=== PATIENT | female | born 1985 | race Caucasian/White ===

== ENCOUNTER 2017-07-05 07:42 | Inpatient (IN) | payer OTHER ==
[2017-07-05] MEDS ORDERED: Sodium Chloride 0.9% 10 ML Syringe FLUSH PRN (08:18)
[2017-07-05] MEDS ORDERED: Oxytocin/Lactated Ringers 10 UNIT/1,000 ML BAG IV SCH (08:30)
[2017-07-05] MEDS ORDERED: Lactated Ringers 1,000 ML IV SCH (08:30)
--- NOTE | 2017-07-05 08:35 | PCM.LDHP ---
L&D History of Present Illness - General Date of Service: 07/05/17 Admit Problem/Dx: Patient Status Order with Admit Dx/Problem 07/05/17 08:19 Patient Status [ADT] Routine Admission Diagnosis/Problem Admission Diagnosis/Problem 07/05/17 08:31 31 you at 40 1/7 presents with active labor. No NERI. No VB. Good FM. routine care. AB pos GBS neg Source of Information: Patient History Limitations: Reports: No Limitations - History of Present Illness Location, : Reports: Abdomen Quality: Reports: Pressure Severity: Moderate Improves with: Reports: None Worsens with: Reports: None Associated Symptoms: Denies: vaginal bleeding, vaginal fluid - Related Data Allergies/Adverse Reactions: Allergies Allergy/AdvReac Type Severity Reaction Status Date / Time No Known Allergies Allergy Verified 07/05/17 08:18 Past Medical History : 3 Para: 2 LMP (Approximate): - Past Surgical History HEENT Surgical History: Reports: Tonsillectomy Social & Family History - Family History Family Medical History: Noncontributory - Tobacco Use Smoking Status *Q: Never Smoker Tobacco Use Within Last Twelve Months: No - Living Situation & Occupation Living situation: Reports: H&P Review of Systems - Review of Systems: Review Of Systems: See Below General: Reports: No Symptoms HEENT: Reports: No Symptoms Pulmonary: Reports: No Symptoms Cardiovascular: Reports: No Symptoms Gastrointestinal: Reports: No Symptoms Genitourinary: Reports: No Symptoms Musculoskeletal: Reports: No Symptoms Skin: Reports: No Symptoms Psychiatric: Reports: No Symptoms Neurological: Reports: No Symptoms Hematologic/Lymphatic: Reports: No Symptoms Immunologic: Reports: No Symptoms L&D Exam - Exam Exam: See Below - Vital Signs Vital Signs: Last Vital Signs Temp 36.9 C 07/05/17 08:19 Pulse 85 07/05/17 08:19 Resp 16 07/05/17 08:19 BP 129/80 07/05/17 08:19 Pulse Ox Weight: 131.905 kg - OB Specific Contraction Intensity: Moderate Movement: Active Heart Tones: Present Heart Tones per Min: 135 Heart Rate (FHR) Variability: Moderate (6-25 bmp) Presentation: Vertex Estimated Weight: 3500 - Jaimes Score Jaimes Score Cervix Position: Midposition (cervical exam per nursing assessment) Jaimes Score Consistency: Medium Jaimes Score Effacement: 51-70% Jaimes Score Dilation: > 5 cm Jaimes Score 's Station: -2 Jaimes Score Total: 8 - Exam General: Alert, Oriented HEENT: Conjunctiva Clear GI/Abdominal Exam: Normal Bowel Sounds Extremities: No Pedal Edema Skin: Warm, Dry, Intact Psychiatric: Alert, Normal Affect, Normal Mood - Problem List (1) SNOMED Code(s): 59941684 ICD Code: Z34.90 - ENCNTR FOR SUPRVSN OF NORMAL , UNSP, UNSP TRIMESTER Status: Acute Current Visit: Yes Problem List Initiated/Reviewed/Updated: Yes Orders Last 24hrs: Active Orders 24 hr Category Date Time Status Patient Status [ADT] Routine ADT 07/05/17 08:19 Active Activity as Tolerated [RC] PFP Care 07/05/17 08:19 Active Communication Order [RC] ASDIRECTED Care 07/05/17 08:19 Active Heart Tones [RC] ASDIRECTED Care 07/05/17 08:19 Active Notify Provider [RC] PFP Care 07/05/17 08:19 Active Notify Provider [RC] PRN Care 07/05/17 08:19 Active Peripheral IV Care [RC] . DIRECTED Care 07/05/17 08:19 Active Vital Signs [RC] PER UNIT ROUTINE Care 07/05/17 08:19 Active CBC WITH AUTO DIFF [HEME] Stat Lab 07/05/17 08:18 Ordered TYPE AND SCREEN [BBK] Stat Lab 07/05/17 08:18 Ordered Lactated Ringers [Ringers, Lactated] 1,000 ml Med 07/05/17 08:30 Ordered IV ASDIRECTED Oxytocin/Lactated Ringers [Pitocin in LR 10 Units/1,000 Med 07/05/17 08:30 Ordered ML] 10 unit in 1,000 ml IV .CONTINUOUS Sodium Chloride 0.9% [Saline Flush] Med 07/05/17 08:18 Ordered 10 ml FLUSH ASDIRECTED PRN Electronic Heart Tones Ext w TOCO [WOMSER] Oth 07/05/17 08:19 Ordered Routine Electronic Heart Tones Internal [WOMSER] Per Unit Oth 07/05/17 08:19 Ordered Routine Peripheral IV Insertion Adult [OM.PC] Routine Oth 07/05/17 08:19 Ordered Resuscitation Status Routine Resus Stat 07/05/17 08:18 Ordered Medication Orders Lactated Ringer's (Ringers, Lactated) 1,000 mls @ 100 mls/hr IV ASDIRECTED ROSY Oxytocin/Lactated Ringer's (Pitocin In Lr 10 Units/1,000 Ml) 10 unit in 1,000 mls @ 500 mls/hr IV .CONTINUOUS ROSY PRN Reason: Protocol Sodium Chloride (Saline Flush) 10 ml FLUSH ASDIRECTED PRN PRN Reason: Keep Vein Open Assessment/Plan Comment:: 31 yo at 40 1/7 presents in active labor desires epidural. GBS negative expectant management.
[2017-07-05] MEDS ORDERED: Lidocaine 1% 50 ML MDV ONE (09:19)
[2017-07-05] MEDS ORDERED: Lidocaine 1% 10 ML MDV INJECT ONE (09:29)
[2017-07-05] MEDS ORDERED: Witch Hazel Medicated Pads 100/Jar TOP PRN (09:42)
[2017-07-05] MEDS ORDERED: Lanolin 100% Cream 7 GM Tube TOP PRN (09:42)
[2017-07-05] MEDS ORDERED: Benzocaine/Menthol 20%-0.5% Spray 56 GM Canister TOP PRN (09:42)
[2017-07-05] MEDS ORDERED: Acetaminophen 325 MG Tab PO PRN (09:42)
[2017-07-05] MEDS: Ibuprofen 600 MG Tab PO PRN ×2 (11:23→23:46)
[2017-07-05] MEDS: Docusate Sodium 100 MG Cap PO PRN (23:46)
[2017-07-06] MEDS: Docusate Sodium 100 MG Cap PO PRN (06:34)
[2017-07-06] MEDS: Ibuprofen 600 MG Tab PO PRN (06:34)
--- NOTE | 2017-07-06 06:37 | PCM.DCSUM1 ---
Discharge Summary - Hospital Course Free Text/Narrative:: 31 yo at PPD #1 s/p with 1st degree laceration. Routine maternal stay. transferred to [place] and will be transferring to [place] today for cardiac defect. Pain controlled. Tolerating diet. Exam Unremarkable D/C today to travel to be with infant. FOB is with infant and Michael has family to emergency vehicle driver her. - Discharge Data Discharge Date: 07/06/17 Discharge Disposition: Home, Self-Care 01 Condition: Good - Discharge Diagnosis/Problem(s) (1) SNOMED Code(s): 76731776 ICD Code: Z34.90 - ENCNTR FOR SUPRVSN OF NORMAL , UNSP, UNSP TRIMESTER Status: Acute Current Visit: Yes Qualifiers: Weeks of gestation: 40 weeks Qualified Code(s): Z3A.40 - 40 weeks gestation of - Patient Instructions Diet: Heart Healthy Diet, Regular Diet as Tolerated Activity: As Tolerated Driving: May Drive Today Showering/Bathing: May Shower Notify Provider of: Fever, Increased Pain, Swelling and Redness, Drainage, Nausea and/or Vomiting - Discharge Plan Home Medications: Home Meds Acetaminophen [Tylenol] 650 mg PO Q4H PRN tablet 07/06/17 [Rx] Docusate Sodium [Colace] 100 mg PO BID PRN cap 07/06/17 [Rx] Ibuprofen [IJD: Ibuprofen] 600 mg PO Q4H PRN tablet 07/06/17 [Rx] Lanolin [Lansinoh HPA] 1 applic TOP ASDIRECTED PRN tube 07/06/17 [Rx] Sodium Chloride 0.9% [Saline Flush] 10 ml FLUSH ASDIRECTED PRN syringe [Rx] Rudy Castano [Tucks] 1 pad TOP ASDIRECTED PRN pad 07/06/17 [Rx] Referrals: Shanel Cleaning MD [Primary Care Provider] - - Discharge Summary/Plan Comment DC Time >30 min.: No - General Info Functional Status: Reports: Pain Controlled, Tolerating Diet, Ambulating, Urinating - Patient Data Vitals - Most Recent: Last Vital Signs Temp 36.6 C 07/05/17 20:13 Pulse 82 07/06/17 02:51 Resp 16 07/06/17 02:51 BP 120/72 07/06/17 02:51 Pulse Ox 100 07/06/17 02:51 Weight - Most Recent: 131.905 kg I&O - Last 24 hours: Intake & Output 07/05/17 07/05/17 07/06/17 14:59 22:59 06:59 Intake Total 1320 Balance 1320 Lab Results - Last 24 hrs: Laboratory Results - last 24 hr 07/05/17 07/05/17 Range/Units 08:30 08:30 WBC 12.83 H (3.98-10.04) K/mm3 RBC 3.11 L (3.98-5.22) M/mm3 Hgb 10.9 L (11.2-15.7) gm/L Hct 31.2 L (34.1-44.9) % MCV 100.3 H (79.4-94.8) fl MCH 35.0 H (25.6-32.2) pg MCHC 34.9 (32.2-35.5) g/dl RDW Std Deviation 47.3 H (36.4-46.3) fL Plt Count 142 L (182-369) K/mm3 MPV 8.7 L (9.4-12.3) fl Neut % (Auto) 82.8 H (34.0-71.1) % Lymph % (Auto) 11.4 L (19.3-51.7) % [place] % (Auto) 5.2 (4.7-12.5) % Eos % (Auto) 0.2 L (0.7-5.8) Baso % (Auto) 0.1 (0.1-1.2) % Neut # (Auto) 10.63 H (1.56-6.13) K/mm3 Lymph # (Auto) 1.46 (1.18-3.74) K/mm3 [place] # (Auto) 0.67 H (0.24-0.36) K/mm3 Eos # (Auto) 0.02 L (0.04-0.36) K/mm3 Baso # (Auto) 0.01 (0.01-0.08) K/mm3 Blood Type AB POSITIVE Gel Antibody Screen Negative Med Orders - Current: Current Medications Acetaminophen (Tylenol) 650 mg PO Q4H PRN PRN Reason: mild pain or fever Benzocaine/Menthol (Dermoplast Pain Relief [place]) 0 gm TOP ASDIRECTED PRN PRN Reason: Perineal Comfort Measure Last Admin: 07/05/17 11:01 Dose: 1 applic Docusate Sodium (Colace) 100 mg PO BID PRN PRN Reason: Constipation Last Admin: 07/05/17 23:46 Dose: 100 mg Emollient Ointment (Lansinoh Hpa) 0 gm TOP ASDIRECTED PRN PRN Reason: Sore Nipples Oxytocin/Lactated Ringer's (Pitocin In Lr 10 Units/1,000 Ml) 10 unit in 1,000 mls @ 500 mls/hr IV .CONTINUOUS ROSY PRN Reason: Protocol Last Admin: 07/05/17 09:20 Dose: 500 mls/hr Ibuprofen (Motrin) 600 mg PO Q4H PRN PRN Reason: Mild pain or fever Last Admin: 07/05/17 23:46 Dose: 600 mg Sodium Chloride (Saline Flush) 10 ml FLUSH ASDIRECTED PRN PRN Reason: Keep Vein Open Rudy Castano (Karon) 1 pad TOP ASDIRECTED PRN PRN Reason: Hemorrhoid pain Last Admin: 07/05/17 11:01 Dose: 1 applic Discontinued Medications Lactated Ringer's (Ringers, Lactated) 1,000 mls @ 100 mls/hr IV ASDIRECTED ROSY Stop: 07/05/17 18:00 Last Infusion: 07/05/17 08:47 Dose: 999 mls/hr Lidocaine HCl (Xylocaine 1%) Confirm Administered Dose 50 ml .ROUTE .STK-MED ONE Stop: 07/05/17 09:20 Last Admin: 07/05/17 09:34 Dose: Not Given Lidocaine HCl (Xylocaine 1%) 10 ml INJECT ONETIME ONE Stop: 07/05/17 09:30 Last Admin: 07/05/17 09:34 Dose: 10 ml *Q Meaningful Use (DIS) - VTE *Q VTE Criteria *Q: - Stroke *Q Stroke Criteria *Q: - AMI *Q AMI Criteria *Q: - General Info Date of Service: 07/06/17 - Patient Data Vital Signs - Most Recent: Last Vital Signs Temp 36.6 C 07/05/17 20:13 Pulse 82 07/06/17 02:51 Resp 16 07/06/17 02:51 BP 120/72 07/06/17 02:51 Pulse Ox 100 07/06/17 02:51 Weight - Most Recent: 131.905 kg I&O - Last 24 Hours: Intake & Output 07/05/17 07/05/17 07/06/17 14:59 22:59 06:59 Intake Total 1320 Balance 1320 Lab Results - Last 24 Hours: Laboratory Results - last 24 hr 07/05/17 07/05/17 Range/Units 08:30 08:30 WBC 12.83 H (3.98-10.04) K/mm3 RBC 3.11 L (3.98-5.22) M/mm3 Hgb 10.9 L (11.2-15.7) gm/L Hct 31.2 L (34.1-44.9) % MCV 100.3 H (79.4-94.8) fl MCH 35.0 H (25.6-32.2) pg MCHC 34.9 (32.2-35.5) g/dl RDW Std Deviation 47.3 H (36.4-46.3) fL Plt Count 142 L (182-369) K/mm3 MPV 8.7 L (9.4-12.3) fl Neut % (Auto) 82.8 H (34.0-71.1) % Lymph % (Auto) 11.4 L (19.3-51.7) % [place] % (Auto) 5.2 (4.7-12.5) % Eos % (Auto) 0.2 L (0.7-5.8) Baso % (Auto) 0.1 (0.1-1.2) % Neut # (Auto) 10.63 H (1.56-6.13) K/mm3 Lymph # (Auto) 1.46 (1.18-3.74) K/mm3 [place] # (Auto) 0.67 H (0.24-0.36) K/mm3 Eos # (Auto) 0.02 L (0.04-0.36) K/mm3 Baso # (Auto) 0.01 (0.01-0.08) K/mm3 Blood Type AB POSITIVE Gel Antibody Screen Negative Med Orders - Current: Current Medications Acetaminophen (Tylenol) 650 mg PO Q4H PRN PRN Reason: mild pain or fever Benzocaine/Menthol (Dermoplast Pain Relief [place]) 0 gm TOP ASDIRECTED PRN PRN Reason: Perineal Comfort Measure Last Admin: 07/05/17 11:01 Dose: 1 applic Docusate Sodium (Colace) 100 mg PO BID PRN PRN Reason: Constipation Last Admin: 07/06/17 06:34 Dose: 100 mg Emollient Ointment (Lansinoh Hpa) 0 gm TOP ASDIRECTED PRN PRN Reason: Sore Nipples Oxytocin/Lactated Ringer's (Pitocin In Lr 10 Units/1,000 Ml) 10 unit in 1,000 mls @ 500 mls/hr IV .CONTINUOUS ROSY PRN Reason: Protocol Last Admin: 07/05/17 09:20 Dose: 500 mls/hr Ibuprofen (Motrin) 600 mg PO Q4H PRN PRN Reason: Mild pain or fever Last Admin: 07/06/17 06:34 Dose: 600 mg Sodium Chloride (Saline Flush) 10 ml FLUSH ASDIRECTED PRN PRN Reason: Keep Vein Open Rudy Castano (Tucks) 1 pad TOP ASDIRECTED PRN PRN Reason: Hemorrhoid pain Last Admin: 07/05/17 11:01 Dose: 1 applic Discontinued Medications Lactated Ringer's (Ringers, Lactated) 1,000 mls @ 100 mls/hr IV ASDIRECTED ROSY Stop: 07/05/17 18:00 Last Infusion: 07/05/17 08:47 Dose: 999 mls/hr Lidocaine HCl (Xylocaine 1%) Confirm Administered Dose 50 ml .ROUTE .STK-MED ONE Stop: 07/05/17 09:20 Last Admin: 07/05/17 09:34 Dose: Not Given Lidocaine HCl (Xylocaine 1%) 10 ml INJECT ONETIME ONE Stop: 07/05/17 09:30 Last Admin: 07/05/17 09:34 Dose: 10 ml - Infant Interaction Disposition, : [place] in Room with Family Interaction: Unable to Hold at this Time, Other (see below) ( infant trasferred to higher level of care) Feeding: Other (see below) (utilizing breast pump) Support Person: - Recovery Exam Fundal Tone: Firm Fundal Level: 1 Fingerbreadths Below Umbilicus Fundal Placement: Midline Lochia Amount: Small Lochia Color: Rubra/Red Perineum Description: Other (see below) Other Perinuem Description: 2 nd degree with repair Episiotomy/Laceration: Approximated Bladder Status: Voiding Urinary Elimination: Voided - Exam General: Alert, Oriented Extremities: No Pedal Edema Skin: Warm, Dry Psy/Mental Status: Alert
== END 2017-07-06 06:50 | disposition home or self-care (01) | DRG 775 ==
LOC: MERGE 07:42 → JD.OB 07:42 → JD.OBCHECK 07:42 → JD.OB 08:19 → JD.OBCHECK 08:19 → JD.OB 09:20 → OBSVTOIN 09:20
PROVIDERS: ADMIT Family Medicine; ATTEND Family Medicine
PROC: 10E0XZZ Delivery of Products of Conception, External Approach (ICD-10-PCS; principal; 2017-07-05)
PROC: 0KQM0ZZ Repair Perineum Muscle, Open Approach (ICD-10-PCS; 2017-07-05)
DX: O70.1 Second degree perineal laceration during delivery (principal); Z37.0 Single live birth; Z3A.40 40 weeks gestation of pregnancy
CPT/HCPCS: 36415; 59300; 59409; 85025; 85027; 86850; 86900; 86901; A9270-GY; J2590; J7120

== ENCOUNTER 2020-08-18 16:01 | Inpatient (IN) | payer OTHER ==
[~2020-08-18 16:01] MED LIST: Bupivacaine 0.25% 10 ML SDV ONE
[2020-08-18] MEDS ORDERED: Ondansetron 4 MG/2 ML SDV IVPUSH PRN ×2 (16:11→17:33)
[2020-08-18] MEDS ORDERED: Sodium Chloride 0.9% 10 ML Syringe FLUSH PRN (16:11)
[2020-08-18] MEDS ORDERED: Nalbuphine 10 MG/1 ML Vial IVPUSH PRN (16:11)
[2020-08-18] MEDS ORDERED: Oxytocin/Lactated Ringers 10 UNIT/1,000 ML BAG IV SCH ×2 (16:15)
--- NOTE | 2020-08-18 16:59 | PCM.LDHP ---
L&D History of Present Illness - General Date of Service: 08/18/20 Admit Problem/Dx: Patient Status Order with Admit Dx/Problem 08/18/20 16:11 Patient Status [ADT] Routine Admission Diagnosis/Problem Admission Diagnosis/Problem Normal in third trimester Source of Information: Patient History Limitations: Reports: No Limitations - History of Present Illness Introduction:: Patient is a 34 y/o at 39 6/7 wks who presents for IOL. Doing well today. Having a fair amount of contractions. 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: 3 LMP (Approximate): - Past Surgical History HEENT Surgical History: Reports: Tonsillectomy Female Surgical History: Reports: LEEP Social & Family History - Family History Family Medical History: No Pertinent Family History - Tobacco Use Tobacco Use Status *Q: Never Tobacco User - Alcohol Use Alcohol Use History: No - Recreational Drug Use Recreational Drug Use: No - Living Situation & Occupation Living situation: Reports: H&P Review of Systems - Review of Systems: Review Of Systems: See Below General: Reports: No Symptoms Pulmonary: Reports: No Symptoms Cardiovascular: Reports: No Symptoms Gastrointestinal: Reports: No Symptoms Genitourinary: Reports: No Symptoms Musculoskeletal: Reports: No Symptoms Psychiatric: Reports: No Symptoms L&D Exam - Exam Exam: See Below - Vital Signs Weight: 92.079 kg - OB Specific Contraction Intensity: Irritability Movement: Active Heart Tones: Present Heart Tones per Min: 140 Heart Rate (FHR) Variability: Moderate (6-25 bmp) Presentation: Vertex - Jaimes Score Jaimes Score Cervix Position: Posterior Jaimes Score Consistency: Soft Jaimes Score Effacement: 51-70% Jaimes Score Dilation: 1-2 cm Jaimes Score 's Station: -1 ,0 Jaimes Score Total: 7 - Exam General: Alert, Oriented, Cooperative Lungs: Clear to Auscultation, Normal Respiratory Effort Cardiovascular: Regular Rate, Regular Rhythm GI/Abdominal Exam: Soft, Non-Tender Genitourinary: Normal external exam Extremities: Normal Inspection Skin: Warm, Dry, Intact - Patient Data Lab Results Last 24 hrs: Laboratory Results - last 24 hr 08/18/20 Range/Units 16:21 WBC 6.40 (3.98-10.04) K/mm3 RBC 3.22 L (3.98-5.22) M/mm3 Hgb 10.8 L (11.2-15.7) gm/dl Hct 32.3 L (34.1-44.9) % MCV 100.3 H (79.4-94.8) fl MCH 33.5 H (25.6-32.2) pg MCHC 33.4 (32.2-35.5) g/dl RDW Std Deviation 50.2 H (36.4-46.3) fL Plt Count 187 (182-369) K/mm3 MPV 8.8 L (9.4-12.3) fl Result Diagrams: 08/18/20 16:21 - Problem List (1) 39 weeks gestation of SNOMED Code(s): 64305569 ICD Code: Z3A.39 - 39 WEEKS GESTATION OF Status: Acute Current Visit: Yes Problem List Initiated/Reviewed/Updated: Yes Orders Last 24hrs: Active Orders 24 hr Category Date Time Status Patient Status [ADT] Routine ADT 08/18/20 16:11 Active Communication Order [RC] ASDIRECTED Care 08/18/20 16:11 Active Communication Order [RC] ASDIRECTED Care 08/18/20 16:11 Active Communication Order [RC] ASDIRECTED Care 08/18/20 16:11 Active Heart Tones [RC] ASDIRECTED Care 08/18/20 16:12 Active Monitoring [RC] INTERMITTENT Care 08/18/20 16:11 Active Non Stress Test [RC] PER UNIT ROUTINE Care 08/18/20 16:11 Active Notify Provider [RC] ASDIRECTED Care 08/18/20 16:11 Active Notify Provider [RC] PRN Care 08/18/20 16:11 Active Peripheral IV Care [RC] . DIRECTED Care 08/18/20 16:12 Active Up ad [place] [RC] ASDIRECTED Care 08/18/20 16:12 Active Vaginal Exam [RC] ASDIRECTED Care 08/18/20 16:11 Active Vital Signs [RC] ASDIRECTED Care 08/18/20 16:11 Active Regular Diet [DIET] Diet 08/18/20 Dinner Active CORONAVIRUS COVID-19 NIKITA [MOLEC] Stat Lab 08/18/20 16:35 Received RAPID PLASMA REAGIN,RPR [CHEM] Routine Lab 08/18/20 16:21 Received TYPE AND SCREEN [BBK] Stat Lab 08/18/20 16:21 Received Lactated Ringers [Ringers, Lactated] 1,000 ml Med 08/18/20 16:15 Active IV ASDIRECTED Nalbuphine [Nubain] Med 08/18/20 16:11 Active 10 mg IVPUSH Q2H PRN Ondansetron [Zofran] Med 08/18/20 16:11 Active 4 mg IVPUSH Q4H PRN Oxytocin/Lactated Ringers [Pitocin in LR 10 Units/1,000 Med 08/18/20 16:15 Active ML] 10 unit in 1,000 ml IV .CONTINUOUS Oxytocin/Lactated Ringers [Pitocin in LR 10 Units/1,000 Med 08/18/20 16:15 Active ML] 10 unit in 1,000 ml IV TITRATE Sodium Chloride 0.9% [Saline Flush] Med 08/18/20 16:11 Active 10 ml FLUSH ASDIRECTED PRN Electronic Heart Tones Ext w TOCO [WOMSER] Oth 08/18/20 16:11 Ordered Routine Electronic Heart Tones Internal [WOMSER] Per Unit Oth 08/18/20 16:11 Ordered Routine Peripheral IV Insertion Adult [OM.PC] Routine Oth 08/18/20 16:11 Ordered Resuscitation Status Routine Resus Stat 08/18/20 16:11 Ordered Medication Orders Oxytocin/Lactated Ringer's (Pitocin In Lr 10 Units/1,000 Ml) 10 unit in 1,000 mls @ 12 mls/hr IV TITRATE ROSY; Protocol Oxytocin/Lactated Ringer's (Pitocin In Lr 10 Units/1,000 Ml) 10 unit in 1,000 mls @ 500 mls/hr IV .CONTINUOUS ROSY Lactated Ringer's (Ringers, Lactated) 1,000 mls @ 40 mls/hr IV ASDIRECTED ROSY Nalbuphine HCl (Nubain) 10 mg IVPUSH Q2H PRN PRN Reason: Pain Ondansetron HCl (Zofran) 4 mg IVPUSH Q4H PRN PRN Reason: Nausea/Vomiting Sodium Chloride (Saline Flush) 10 ml FLUSH ASDIRECTED PRN PRN Reason: Keep Vein Open Assessment/Plan Comment:: * Labs * GBS negative * Pitocin/AROM for IOL * Pain management per patient preference * Anticipate
[2020-08-18] MEDS: Lactated Ringers 1,000 ML IV SCH ×2 (17:16→21:50)
[2020-08-18] MEDS ORDERED: ePHEDrine 50 MG/ML SDV IVPUSH PRN (17:33)
[2020-08-18] MEDS ORDERED: fentaNYL 100 MCG/2 ML SDV EPIDUR PRN (17:33)
--- NOTE | 2020-08-18 17:38 | PCM.PREANE ---
Preanesthetic Assessment - Procedure Proposed Procedure: Epidural - Anesthesia/Transfusion/Family Hx Anesthesia History: Prior Anesthesia Without Reaction Family History of Anesthesia Reaction: No Transfusion History: No Prior Transfusion(s) Intubation History: Unknown - Review of Systems General: No Symptoms Pulmonary: No Symptoms (Covid +: in April mild symptoms, and today tested positive again.) Cardiovascular: No Symptoms Gastrointestinal: No Symptoms (GERD) Neurological: No Symptoms Other: Reports: None - Physical Assessment NPO Status Date: 08/18/20 NPO Status Time: 14:00 Vital Signs: HR: 75 B/P: 112/73 Resp: 20 Temp: 98.2 Sat: 99% Height: 1.63 m Weight: 92.079 kg ASA Class: 2 Mental Status: Alert & Oriented x3 Airway Class: Mallampati = 2 Dentition: Reports: Normal Dentition, Caries Thyro-Mental Finger Breadths: 3 Mouth Opening Finger Breadths: 3 ROM/Head Extension: Full Lungs: Clear to Auscultation, Normal Respiratory Effort Cardiovascular: Regular Rate, Regular Rhythm, No Murmurs - Lab Values: Laboratory Last Values WBC 6.40 K/mm3 (3.98-10.04) 08/18/20 16:21 RBC 3.22 M/mm3 (3.98-5.22) L 08/18/20 16:21 Hgb 10.8 gm/dl (11.2-15.7) L 08/18/20 16:21 Hct 32.3 % (34.1-44.9) L 08/18/20 16:21 MCV 100.3 fl (79.4-94.8) H 08/18/20 16:21 MCH 33.5 pg (25.6-32.2) H 08/18/20 16:21 MCHC 33.4 g/dl (32.2-35.5) 08/18/20 16:21 RDW Std Deviation 50.2 fL (36.4-46.3) H 08/18/20 16:21 Plt Count 187 K/mm3 (182-369) 08/18/20 16:21 MPV 8.8 fl (9.4-12.3) L 08/18/20 16:21 SARS-CoV-2 RNA (NIKITA) Positive (NEGATIVE) H 08/18/20 16:35 Blood Type AB POSITIVE 08/18/20 16:21 Above labs reviewed and noted and within acceptable ranges to proceed with epidural if desired. - Allergies Allergies/Adverse Reactions: Allergies Allergy/AdvReac Type Severity Reaction Status Date / Time No Known Allergies Allergy Verified 07/05/17 08:18 - Anesthesia Plan Pre-Op Medication Ordered: None - Acknowledgements Anesthesia Type Planned: Epidural Pt an Appropriate Candidate for the Planned Anesthesia: Yes Alternatives and Risks of Anesthesia Discussed w Pt/Guardian: Yes Pt/Guardian Understands and Agrees with Anesthesia Plan: Yes PreAnesthesia Questionnaire [employer]S History: Reports: , Other (See Below) Other OB/BYN History: Abnormal PAP smear of cervix, LEEP. - Past Surgical History HEENT Surgical History: Reports: Tonsillectomy - HOME MEDS Home Medications: Home Meds Cyanocobalamin/Folic Acid [Vitamin R06-Ctpgd Acid] 1 each PO DAILY 08/18/20 [History] Ferrous Sulfate 325 mg PO DAILY 08/18/20 [History] Pnv,Calcium 72/Iron/Folic Acid [ Vitamin with Low Iron] 1 each PO DAILY 08/18/20 [History] - CURRENT (IN HOUSE) MEDS Current Meds: Current Medications Ephedrine Sulfate (Ephedrine Sulfate) 5 mg IVPUSH ASDIRECTED PRN PRN Reason: Hypotension Fentanyl (Sublimaze) 100 mcg EPIDUR Q3H PRN PRN Reason: Pain Fentanyl/Bupivacaine HCl (Fentanyl/Bupivacaine/Ns 2 Mcg-0.125% 100 Ml) 100 ml EPIDUR ASDIRECTED ROSY Oxytocin/Lactated Ringer's (Pitocin In Lr 10 Units/1,000 Ml) 10 unit in 1,000 mls @ 12 mls/hr IV TITRATE ROSY; Protocol Last Admin: 08/18/20 17:17 Dose: 2 munits/min, 12 mls/hr Documented by: Oxytocin/Lactated Ringer's (Pitocin In Lr 10 Units/1,000 Ml) 10 unit in 1,000 mls @ 500 mls/hr IV .CONTINUOUS ROSY Lactated Ringer's (Ringers, Lactated) 1,000 mls @ 40 mls/hr IV ASDIRECTED ROSY Last Admin: 08/18/20 17:16 Dose: 40 mls/hr Documented by: Nalbuphine HCl (Nubain) 10 mg IVPUSH Q2H PRN PRN Reason: Pain Ondansetron HCl (Zofran) 4 mg IVPUSH Q4H PRN PRN Reason: Nausea/Vomiting Ondansetron HCl (Zofran) 4 mg IVPUSH ONETIME PRN PRN Reason: Nausea/Vomiting Sodium Chloride (Saline Flush) 10 ml FLUSH ASDIRECTED PRN PRN Reason: Keep Vein Open Discontinued Medications Miscellaneous Medication (Phenylephrine 1 Mg/10 Ml-Ns) 0 mg IVPUSH ONETIME ONE Stop: 08/18/20 17:34
[2020-08-18] MEDS ORDERED: Bupivacaine/fentaNYL/NS 100 ML Bag EPIDUR SCH (17:45)
--- NOTE | 2020-08-18 22:38 | PCM.DEL ---
L & D Note - General Info Date of Service: 08/18/20 - Delivery Note Labor: Induced by ARM, Induced by Oxytocin Delivery Outcome: Livebirth Infant Delivery Method: Spontaneous Vaginal Delivery-Single Infant Delivery Mode: Spontaneous Presentation: Left Occiput Anterior (MARC) Nuchal Cord: None Anesthesia Type: Epidural Amniotic Fluid Description: Clear Episiotomy Type: None Laceration: 1st Degree Suture type: Vicryl Suture size: 2-0 Placenta: Intact, Spontaneous Cord: 3 Vessels Estimated Blood Loss: 100 Resuscitation Needed: Yes : Bulb Syringe, Stimulated, Warmed, Magazine Used, Warmer Used Delivery Comments (Free Text/Narrative):: Patient found to be complete and began pushing. With maternal pushing effort head delivered from an MARC presentation. With gentle downward traction shoulders did not immediately deliver. Patient put into deeper McRobert's and after abotu 20 seconds anterior shoulder did deliver. Rest of infant quickly followed. Baby put on maternal abdomen. Cord clamped and cut. Cord blood obtained. Placenta allowed time to separate and expelled intact. Inspection of perineum showed a 1st degree laceration repaired with a 2-0 in typical fashion - General Info Date of Service: 08/18/20 - Patient Data Vitals - Most Recent: Last Vital Signs Temp 36.8 C 08/18/20 16:11 Pulse 81 08/18/20 17:51 Resp 16 08/18/20 16:11 BP 114/73 08/18/20 17:51 Pulse Ox Weight - Most Recent: 92.079 kg - Problem List & Annotations (1) 39 weeks gestation of SNOMED Code(s): 83790078 Code(s): Z3A.39 - 39 WEEKS GESTATION OF Status: Acute Current Visit: Yes (2) Vaginal delivery SNOMED Code(s): 168229563 Code(s): O80 - ENCOUNTER FOR FULL-TERM UNCOMPLICATED DELIVERY Status: Acute Current Visit: Yes (3) Shoulder dystocia, delivered, current hospitalization SNOMED Code(s): 232833912, 992260205 Code(s): O66.0 - OBSTRUCTED LABOR DUE TO SHOULDER DYSTOCIA Status: Acute Current Visit: Yes - Problem List Review Problem List Initiated/Reviewed/Updated: Yes - My Orders Last 24 Hours: My Active Orders 08/18/20 16:11 Patient Status [ADT] Routine Communication Order [RC] ASDIRECTED Communication Order [RC] ASDIRECTED Communication Order [RC] ASDIRECTED Monitoring [RC] INTERMITTENT Non Stress Test [RC] PER UNIT ROUTINE Notify Provider [RC] ASDIRECTED Notify Provider [RC] PRN Vaginal Exam [RC] ASDIRECTED Vital Signs [RC] ASDIRECTED Nalbuphine [Nubain] 10 mg IVPUSH Q2H PRN Ondansetron [Zofran] 4 mg IVPUSH Q4H PRN Sodium Chloride 0.9% [Saline Flush] 10 ml FLUSH ASDIRECTED PRN Electronic Heart Tones Ext w TOCO [WOMSER] Routine Electronic Heart Tones Internal [WOMSER] Per Unit Routine Peripheral IV Insertion Adult [OM.PC] Routine Resuscitation Status Routine 08/18/20 16:12 Peripheral IV Care [RC] Q2HR Up ad [place]odia [RC] ASDIRECTED 08/18/20 16:15 Lactated Ringers [Ringers, Lactated] 1,000 ml IV ASDIRECTED Oxytocin/Lactated Ringers [Pitocin in LR 10 Units/1,000 ML] 10 unit in 1,000 ml IV .CONTINUOUS Oxytocin/Lactated Ringers [Pitocin in LR 10 Units/1,000 ML] 10 unit in 1,000 ml IV TITRATE 08/18/20 Dinner Regular Diet [DIET] 08/18/20 18:37 Nurse Communication: Isolation [RC] ASDIRECTED Isolation [COMM] Routine - Assessment Assessment:: PPD#0 - Plan Plan:: * Routine cares * Breast feeding * Discharge home in 1-2 days
[2020-08-19] MEDS ORDERED: Acetaminophen 325 MG Tab PO PRN (00:12)
[2020-08-19] MEDS ORDERED: Benzocaine/Menthol 20%-0.5% Spray 56 GM Canister TOP PRN (00:12)
[2020-08-19] MEDS ORDERED: Witch Hazel Medicated Pads 40/Jar TOP PRN (00:12)
[2020-08-19] MEDS: Ibuprofen 600 MG Tab PO PRN ×3 (04:15→19:44)
--- NOTE | 2020-08-19 07:14 | PCM.PNPP ---
- General Info Date of Service: 08/19/20 Functional Status: Reports: Pain Controlled, Tolerating Diet, Ambulating, Urinating - Review of Systems General: Reports: No Symptoms Pulmonary: Reports: No Symptoms Cardiovascular: Reports: No Symptoms Gastrointestinal: Reports: No Symptoms Genitourinary: Reports: No Symptoms Musculoskeletal: Reports: No Symptoms - General Info Date of Service: 08/19/20 - Patient Data Vital Signs - Most Recent: Last Vital Signs Temp 37.0 C 08/19/20 03:00 Pulse 83 08/19/20 03:00 Resp 16 08/19/20 03:00 BP 129/86 08/19/20 03:00 Pulse Ox Weight - Most Recent: 92.079 kg I&O - Last 24 Hours: Intake & Output 08/18/20 08/19/20 08/19/20 22:59 06:59 14:59 Intake Total 2500 Balance 2500 Lab Results - Last 24 Hours: Laboratory Results - last 24 hr 08/18/20 08/18/20 08/18/20 Range/Units 16:21 16:21 16:21 WBC 6.40 (3.98-10.04) K/mm3 RBC 3.22 L (3.98-5.22) M/mm3 Hgb 10.8 L (11.2-15.7) gm/dl Hct 32.3 L (34.1-44.9) % MCV 100.3 H (79.4-94.8) fl MCH 33.5 H (25.6-32.2) pg MCHC 33.4 (32.2-35.5) g/dl RDW Std Deviation 50.2 H (36.4-46.3) fL Plt Count 187 (182-369) K/mm3 MPV 8.8 L (9.4-12.3) fl RPR Non-reactive (NONREACTIVE) SARS-CoV-2 RNA (NIKITA) (NEGATIVE) Blood Type AB POSITIVE Gel Antibody Screen Negative 08/18/20 Range/Units 16:35 WBC (3.98-10.04) K/mm3 RBC (3.98-5.22) M/mm3 Hgb (11.2-15.7) gm/dl Hct (34.1-44.9) % MCV (79.4-94.8) fl MCH (25.6-32.2) pg MCHC (32.2-35.5) g/dl RDW Std Deviation (36.4-46.3) fL Plt Count (182-369) K/mm3 MPV (9.4-12.3) fl RPR (NONREACTIVE) SARS-CoV-2 RNA (NIKITA) Positive H (NEGATIVE) Blood Type Gel Antibody Screen Med Orders - Current: Current Medications Acetaminophen (Tylenol) 650 mg PO Q4H PRN PRN Reason: mild pain or fever Benzocaine/Menthol (Dermoplast Pain Relief [place]) 0 gm TOP ASDIRECTED PRN PRN Reason: Perineal Comfort Measure Last Admin: 08/19/20 00:29 Dose: 1 can Documented by: Docusate Sodium (Colace) 100 mg PO BID PRN PRN Reason: Constipation Ibuprofen (Motrin) 600 mg PO Q6H PRN PRN Reason: Mild pain or fever Last Admin: 08/19/20 04:15 Dose: 600 mg Documented by: Rudy Haque) 1 pad TOP ASDIRECTED PRN PRN Reason: Perineal Comfort Measure Last Admin: 08/19/20 00:30 Dose: 1 can Documented by: Discontinued Medications Ephedrine Sulfate (Ephedrine Sulfate) 5 mg IVPUSH ASDIRECTED PRN PRN Reason: Hypotension Fentanyl (Sublimaze) 100 mcg EPIDUR Q3H PRN PRN Reason: Pain Last Admin: 08/18/20 19:48 Dose: 100 mcg Documented by: Fentanyl/Bupivacaine HCl (Fentanyl/Bupivacaine/Ns 2 Mcg-0.125% 100 Ml) 100 ml EPIDUR ASDIRECTED ROSY Last Admin: 08/18/20 19:48 Dose: 100 ml Documented by: Oxytocin/Lactated Ringer's (Pitocin In Lr 10 Units/1,000 Ml) 10 unit in 1,000 mls @ 12 mls/hr IV TITRATE ROSY; Protocol Last Titration: 08/18/20 22:20 Dose: 166.5 munits/min, 999 mls/hr Documented by: Oxytocin/Lactated Ringer's (Pitocin In Lr 10 Units/1,000 Ml) 10 unit in 1,000 mls @ 500 mls/hr IV .CONTINUOUS ROSY Lactated Ringer's (Ringers, Lactated) 1,000 mls @ 40 mls/hr IV ASDIRECTED ROSY Last Admin: 08/18/20 21:50 Dose: 40 mls/hr Documented by: Miscellaneous Medication (Phenylephrine 1 Mg/10 Ml-Ns) 0 mg IVPUSH ONETIME ONE Stop: 08/18/20 17:34 Last Admin: 08/19/20 02:41 Dose: Not Given Documented by: Nalbuphine HCl (Nubain) 10 mg IVPUSH Q2H PRN PRN Reason: Pain Ondansetron HCl (Zofran) 4 mg IVPUSH Q4H PRN PRN Reason: Nausea/Vomiting Ondansetron HCl (Zofran) 4 mg IVPUSH ONETIME PRN PRN Reason: Nausea/Vomiting Sodium Chloride (Saline Flush) 10 ml FLUSH ASDIRECTED PRN PRN Reason: Keep Vein Open - Interaction Disposition, : [place] in Room with Family Infant Interaction: Holding Infant Feeding: Attempted ; Nursed Fair/Poor Support Person: - Recovery Exam Fundal Tone: Firm Fundal Level: At Umbilicus Fundal Placement: Midline Lochia Amount: Small Lochia Color: Rubra/Red Episiotomy/Laceration: Approximated Bladder Status: Nonpalpable Urinary Elimination: Voided - Exam General: Alert, Oriented, Cooperative GI/Abdominal Exam: Soft, Non-Tender Extremities: Normal Inspection Skin: Warm, Dry, Intact - Problem List & Annotations (1) 39 weeks gestation of SNOMED Code(s): 31411631 Code(s): Z3A.39 - 39 WEEKS GESTATION OF Status: Acute Current Visit: Yes (2) Vaginal delivery SNOMED Code(s): 774431026 Code(s): O80 - ENCOUNTER FOR FULL-TERM UNCOMPLICATED DELIVERY Status: Acute Current Visit: Yes (3) Shoulder dystocia, delivered, current hospitalization SNOMED Code(s): 102485579, 307638372 Code(s): O66.0 - OBSTRUCTED LABOR DUE TO SHOULDER DYSTOCIA Status: Acute Current Visit: Yes - Problem List Review Problem List Initiated/Reviewed/Updated: Yes - My Orders Last 24 Hours: My Active Orders 08/18/20 16:11 Resuscitation Status Routine 08/19/20 00:12 Acetaminophen [TylenoL] 650 mg PO Q4H PRN Benzocaine/Menthol [Dermoplast Pain Relief [place]] See Dose Instructions TOP ASDIRECTED PRN Docusate Sodium [Colace] 100 mg PO BID PRN Ibuprofen [Motrin] 600 mg PO Q6H PRN witch Aye [Tucks] 1 pad TOP ASDIRECTED PRN Heat Therapy [OM.PC] PRN 08/19/20 00:12 Activity as Tolerated [RC] PER UNIT ROUTINE Vital Signs [RC] 03,,, Assess Lochia [WOMSER] Per Unit Routine Assess Uterine Involution [WOMSER] Per Unit Routine Breast Pump [WOMSER] Per Unit Routine Ice Therapy [OM.PC] Per Unit Routine Perineal Care [OM.PC] Per Unit Routine Peripheral IV Discontinue [OM.PC] Routine Sitz Bath [OM.PC] Per Unit Routine 08/19/20 Breakfast Regular Diet [DIET] 08/20/20 00:12 Heat Therapy [OM.PC] PRN - Assessment Assessment:: PPD#1 - Plan Plan:: * Routine cares * Breast feeding * Discharge home tomorrow
[2020-08-19] MEDS: Docusate Sodium 100 MG Cap PO PRN (10:00)
--- NOTE | 2020-08-19 10:49 | PCM48HPAN ---
Post Anesthesia Note - EVALUATION WITHIN 48HRS OF ANESTHETIC Vital Signs in Normal Range: Yes Patient Participated in Evaluation: Yes Respiratory Function Stable: Yes Airway Patent: Yes Cardiovascular Function Stable: Yes Hydration Status Stable: Yes Pain Control Satisfactory: Yes Nausea and Vomiting Control Satisfactory: Yes Mental Status Recovered: Yes Vital Signs: Last Vital Signs Temp 98.6 F 08/19/20 03:00 Pulse 83 08/19/20 03:00 Resp 16 08/19/20 03:00 BP 129/86 08/19/20 03:00 Pulse Ox - COMMENTS/OBSERVATIONS Free Text/Narrative:: complains of some back soreness where epid was
[2020-08-20] MEDS: Ibuprofen 600 MG Tab PO PRN ×2 (02:40→08:29)
--- NOTE | 2020-08-20 07:01 | PCM.DCSUM1 ---
Discharge Summary - Hospital Course Brief History: Elective induction, covid positive on admission, does think had had it without a positive test about 13 weeks ago. Uncomplicated labor, delivery and . Diagnosis: Stroke: No - Discharge Data Discharge Date: 08/20/20 Discharge Disposition: Home, Self-Care 01 Condition: Good - Referral to Home Health Primary Care Physician: Nabila Nunez MD - Patient Instructions Diet: Usual Diet as Tolerated Activity: No Strenuous Activities Driving: May Drive Today Notify Provider of: Fever, Increased Pain, Swelling and Redness, Drainage, Nausea and/or Vomiting - Discharge Plan *PRESCRIPTION DRUG MONITORING PROGRAM REVIEWED*: No *COPY OF PRESCRIPTION DRUG MONITORING REPORT IN PATIENT PTATI: No Home Medications: Home Meds Cyanocobalamin/Folic Acid [Vitamin H53-Xjgny Acid] 1 each PO DAILY 08/18/20 [History] Ferrous Sulfate 325 mg PO DAILY 08/18/20 [History] Pnv,Calcium 72/Iron/Folic Acid [ Vitamin with Low Iron] 1 each PO DAILY 08/18/20 [History] Referrals: Nabila Nunez MD [Primary Care Provider] - (2 weeks) - Discharge Summary/Plan Comment DC Time >30 min.: No - General Info Date of Service: 08/20/20 Functional Status: Reports: Pain Controlled - Review of Systems General: Reports: No Symptoms HEENT: Reports: No Symptoms Pulmonary: Reports: No Symptoms Cardiovascular: Reports: No Symptoms Gastrointestinal: Reports: No Symptoms Genitourinary: Reports: No Symptoms Musculoskeletal: Reports: No Symptoms Skin: Reports: No Symptoms Neurological: Reports: No Symptoms Psychiatric: Reports: No Symptoms - Patient Data Vitals - Most Recent: Last Vital Signs Temp 36.4 C 08/20/20 02:31 Pulse 78 08/20/20 02:31 Resp 18 08/20/20 02:31 BP 107/75 08/20/20 02:31 Pulse Ox 99 08/20/20 02:31 Weight - Most Recent: 92.079 kg I&O - Last 24 hours: Intake & Output 08/19/20 08/19/20 08/20/20 14:59 22:59 06:59 Intake Total 360 Balance 360 Med Orders - Current: Current Medications Acetaminophen (Tylenol) 650 mg PO Q4H PRN PRN Reason: mild pain or fever Last Admin: 08/19/20 14:10 Dose: 650 mg Documented by: Benzocaine/Menthol (Dermoplast Pain Relief [place]) 0 gm TOP ASDIRECTED PRN PRN Reason: Perineal Comfort Measure Last Admin: 08/19/20 00:29 Dose: 1 can Documented by: Docusate Sodium (Colace) 100 mg PO BID PRN PRN Reason: Constipation Last Admin: 08/19/20 10:00 Dose: 100 mg Documented by: Ibuprofen (Motrin) 600 mg PO Q6H PRN PRN Reason: Mild pain or fever Last Admin: 08/20/20 02:40 Dose: 600 mg Documented by: Rudy Castano (Benjacks) 1 pad TOP ASDIRECTED PRN PRN Reason: Perineal Comfort Measure Last Admin: 08/19/20 00:30 Dose: 1 can Documented by: Discontinued Medications Ephedrine Sulfate (Ephedrine Sulfate) 5 mg IVPUSH ASDIRECTED PRN PRN Reason: Hypotension Fentanyl (Sublimaze) 100 mcg EPIDUR Q3H PRN PRN Reason: Pain Last Admin: 08/18/20 19:48 Dose: 100 mcg Documented by: Fentanyl/Bupivacaine HCl (Fentanyl/Bupivacaine/Ns 2 Mcg-0.125% 100 Ml) 100 ml EPIDUR ASDIRECTED ROSY Last Admin: 08/18/20 19:48 Dose: 100 ml Documented by: Oxytocin/Lactated Ringer's (Pitocin In Lr 10 Units/1,000 Ml) 10 unit in 1,000 mls @ 12 mls/hr IV TITRATE ROSY; Protocol Last Titration: 08/18/20 22:20 Dose: 166.5 munits/min, 999 mls/hr Documented by: Oxytocin/Lactated Ringer's (Pitocin In Lr 10 Units/1,000 Ml) 10 unit in 1,000 mls @ 500 mls/hr IV .CONTINUOUS ROSY Lactated Ringer's (Ringers, Lactated) 1,000 mls @ 40 mls/hr IV ASDIRECTED ROSY Last Admin: 08/18/20 21:50 Dose: 40 mls/hr Documented by: Miscellaneous Medication (Phenylephrine 1 Mg/10 Ml-Ns) 0 mg IVPUSH ONETIME ONE Stop: 08/18/20 17:34 Last Admin: 08/19/20 02:41 Dose: Not Given Documented by: Nalbuphine HCl (Nubain) 10 mg IVPUSH Q2H PRN PRN Reason: Pain Ondansetron HCl (Zofran) 4 mg IVPUSH Q4H PRN PRN Reason: Nausea/Vomiting Ondansetron HCl (Zofran) 4 mg IVPUSH ONETIME PRN PRN Reason: Nausea/Vomiting Sodium Chloride (Saline Flush) 10 ml FLUSH ASDIRECTED PRN PRN Reason: Keep Vein Open - Exam General: Reports: Alert, Oriented HEENT: Reports: Pupils Equal, Pupils Reactive, EOMI, Mucous Membr. Moist/[place] Neck: Reports: Supple Lungs: Reports: Clear to Auscultation, Normal Respiratory Effort Cardiovascular: Reports: Regular Rate, Regular Rhythm GI/Abdominal Exam: Normal Bowel Sounds, Soft, Non-Tender, No Organomegaly, No Distention, No Abnormal Bruit, No Mass, Pelvis Stable Rectal (Female) Exam: Normal Exam, Normal Rectal Tone Back Exam: Reports: Normal Inspection, Full Range of Motion Extremities: Normal Inspection, Normal Range of Motion, Non-Tender, No Pedal Edema, Normal Capillary Refill Skin: Reports: Warm, Dry, Intact Wound/Incisions: Reports: Healing Well Neurological: Reports: No New Focal Deficit Psy/Mental Status: Reports: Alert, Normal Affect, Normal Mood
[2020-08-20] MEDS: Docusate Sodium 100 MG Cap PO PRN (08:29)
== END 2020-08-20 11:15 | disposition home or self-care (01) | DRG 805 ==
LOC: JD.OB 16:01 → OBSVTOIN 22:20 → JD.OB 22:21
PROVIDERS: ADMIT Obstetrics & Gynecology; ATTEND Obstetrics & Gynecology
PROC: 10E0XZZ Delivery of Products of Conception, External Approach (ICD-10-PCS; principal; 2020-08-18)
PROC: 10907ZC Drainage of Amniotic Fluid, Therapeutic from Products of Conception, Via Natural or Artificial Opening (ICD-10-PCS; 2020-08-18)
PROC: 0HQ9XZZ Repair Perineum Skin, External Approach (ICD-10-PCS; 2020-08-18)
PROC: 3E033VJ Introduction of Other Hormone into Peripheral Vein, Percutaneous Approach (ICD-10-PCS; 2020-08-18)
PROC: 3E0R3BZ Introduction of Anesthetic Agent into Spinal Canal, Percutaneous Approach (ICD-10-PCS; 2020-08-18)
DX: O98.52 Other viral diseases complicating childbirth (principal); U07.1 COVID-19; Z37.0 Single live birth; Z3A.39 39 weeks gestation of pregnancy; O70.0 First degree perineal laceration during delivery; O66.9 Obstructed labor, unspecified
CPT/HCPCS: 01967; 36415; 51702; 59025; 59409; 85027; 86592; 86850; 86900; 86901; A9270-GY; J2590; J3010; J3490; J7120; U0002